=== PATIENT | male | born 1995 | race Caucasian/White ===

== ENCOUNTER 2020-05-09 10:37 | Inpatient (IN) | payer MEDICAID, SELFPAY ==
[~2020-05-09] VITALS: Ht 165.1 cm; Wt 61.2 kg
[2020-05-09 11:01] VITALS: BP 147/118
[2020-05-09] MEDS ORDERED: NACL 0.9% 1,000 ML IV ONE ×2 (11:30→13:35)
--- NOTE | 2020-05-09 11:50 | NUR ---
25 Y/O MALE C/O ABDOMINAL PAIN & CAN'T SLEEP & TOOK THERAFLU 18 BAGS X 3 DAYS. C/O HEAR VOICES LAST NIGHT. PT STATES HE IS CURRENTLY HEARING VOICES AT THIS TIME. STATES THIS IS NOT NORMAL FOR HIM. AAOX4. GCS 15. PT HAS TREMORS AT THIS TIME. RESP EVEN AND UNLABORED. DENIES ANY N/V/D, GI UPSET. COVID TESTED 3 DAYS AGO: NEGATIVE. PMH: ASTHMA
[2020-05-09 12:28] LABS: EOSINOPHILS % (AUTO) 0.2 % (0.0-4.0); HEMATOCRIT 40.9 % (36-52); HEMOGLOBIN 13.9 g/dL (12.0-18.0); LYMPHOCYTES # (AUTO) 1.6 K/uL (2.0-11.5); LYMPHOCYTES % (AUTO) 10.6 % (20.5-51.1); MEAN CORPUSCULAR HEMOGLOBIN 33 pg (27-31); MEAN CORPUSCULAR HGB CONC 34 g/dL (33-37); MONOCYTES # (AUTO) 1.2 K/uL (0.8-1.0); MONOCYTES % (AUTO) 7.8 % (1.7-9.3); NEUTROPHILS # (AUTO) 12.3 K/uL (1.8-7.7); NEUTROPHILS % (AUTO) 81.4 % (42.2-75.2); PLATELET COUNT (AUTO) 209 K/uL (140-450); RED BLOOD CELL COUNT(AUTO) 4.25 MIL/uL (4.20-6.10); RED CELL DISTRIBUTION WIDTH 13.2 % (11.6-13.7); WHITE BLOOD COUNT (AUTO) 15.1 K/uL (4.8-10.8)
[2020-05-09 12:46] LABS: ALBUMIN 3.5 g/dL (3.4-5.0); ANION GAP 13.7 (8-16); ASPARTATE AMINOTRANSFERASE 331 U/L (15-37); CHLORIDE 102 mmol/L (98-107); CREATININE 0.8 mg/dL (0.6-1.3); GFR ARICAN-AMERICAN 149 mL/min (>90); GLUCOSE 110 mg/dL (74-106); POTASSIUM 3.7 mmol/L (3.5-5.1); SODIUM SERUM 138 mmol/L (136-145); TOTAL BILIRUBIN 1.9 mg/dL (0.0-1.0); UREA NITROGEN, BLOOD 15 mg/dL (7-18)
[2020-05-09 13:03] LABS: ACETAMINOPHEN < 0.5 ug/ml (10-30); SALICYLATE < 2.8 mg/dL (2.8-20.0)
[2020-05-09 14:03] LABS: BARBITURATE, URINE NEGATIVE ng/ml (NEG <=200); BENZODIAZEPINE, URINE NEGATIVE ng/mL (NEG <=200); CANNABINOID, URINE NEGATIVE ng/mL (NEG <=50); COCAINE, URINE NEGATIVE ng/mL (NEG <=300); OPIATE, URINE NEGATIVE ng/mL (NEG <=2000); PHENCYCLIDINE SCREEN,URINE NEGATIVE ng/mL (NEG <=25)
--- NOTE | 2020-05-09 15:51 | NUR ---
POISON CONTROL CONTACTED AT THIS TIME RECOMMENDATIONS: MUCOMYST: 3 BAGS, 1ST BAG 150MG/KG OVER ONE HOUR SECOND BA MG/KG OVER 4 HOURS THIRD BAMG/KG OVER 16 HOURS RERUN AST/ALT GET INR, EKG
[2020-05-09] MEDS ORDERED: ACETYLCYSTEINE IV ONE ×2 (16:00)
[2020-05-09] MEDS ORDERED: DEXTROSE 5% IV ONE ×2 (16:00)
--- NOTE | 2020-05-09 16:02 | NUR ---
PT MOVED TO BED 1.
--- NOTE | 2020-05-09 16:05 | NUR ---
Received patient from [facility]/triage area, A, A, O x 4, cooperative. OD on Theraflu 18 packets over 3 days, poison control recommendations are in the chart. 25 Y/O MALE C/O ABDOMINAL PAIN & inability to SLEEP & TOOK THERAFLU 18 packets X 3 DAYS. C/O HEAR VOICES LAST NIGHT. PT STATES HE IS CURRENTLY HEARING VOICES (AH) and seeing a little girl (VH) AT THIS TIME. STATES THIS IS NOT NORMAL FOR HIM. Denies any suicidal ideations. GCS 15. PT HAS TREMORS AT THIS TIME. RESP EVEN AND UNLABORED. DENIES ANY N/V/D, GI UPSET. Connected to telemetry monitor, sinus rhythm COVID TESTED 3 DAYS AGO: NEGATIVE PMH: ASTHMA Will continue to monitor
--- NOTE | 2020-05-09 16:35 | NUR ---
Pharmacy called by THOMAS Aguilar to get mucomyst drip IVPB
--- NOTE | 2020-05-09 17:01 | NUR ---
Called MD and left message that patient needs a diet order
--- NOTE | 2020-05-09 17:45 | NUR ---
Pharmacy brought mucomyst drip. Started at 250cc/hr to run over 1 hour for bag #1
[2020-05-09] MEDS ORDERED: ONDANSETRON 4 MG/2 ML VIAL IM/IVP PRN (18:20)
[2020-05-09] MEDS ORDERED: guaiFENesin DM 200/20 MG-10 ML 10 ML UDC PO PRN (18:20)
[2020-05-09] MEDS ORDERED: POTASSIUM CHLORIDE 40 MEQ, LIDOCAINE MPF 1% 25 MG in NACL 0.9% 250 ML IV PRN (18:20)
[2020-05-09] MEDS ORDERED: ZOLPIDEM 5 MG TAB PO PRN (18:20)
[2020-05-09] MEDS ORDERED: ACETAMINOPHEN 325 MG TAB PO PRN (18:20)
[2020-05-09] MEDS: NACL 0.9% 1,000 ML IV SCH (18:20)
[2020-05-09] MEDS ORDERED: HYDROcodone/APAP 7.5/325 MG 1 TAB PO PRN (18:20)
[2020-05-09] MEDS ORDERED: DOCUSATE SODIUM 100 MG GELCAP PO PRN (18:20)
--- NOTE | 2020-05-09 18:43 | NUR ---
Portable CXR taken, patient ambulating to washroom to void, gait steady
--- NOTE | 2020-05-09 18:46 | NUR ---
2nd bag of mucomyst hung to run at 129cc/hr per Pharmacy, 500cc over 4 hours
--- NOTE | 2020-05-09 19:13 | NUR ---
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 Questions answered, meds and orders reviewed.
--- NOTE | 2020-05-09 19:15 | NUR ---
Patient swabbed for rapid COVID-19 FRAN, sent tolab
[2020-05-09 19:26] LABS: FREE T4 (FREE THYROXINE) 1.11 ng/dL (0.76-1.46); MAGNESIUM 1.9 mg/dL (1.8-2.4); PHOSPHORUS 2.6 mg/dL (2.5-4.9); THYROID STIMULATING HORMONE 2.59 uIU/mL (0.34-3.74)
--- NOTE | 2020-05-09 19:30 | NUR ---
RECEIVED REPORT FROM THOMAS AUGUST AND ASSUMED CARE
[2020-05-09] MEDS ORDERED: ACETYLCYSTEINE IV SCH (22:00)
[2020-05-09] MEDS ORDERED: DEXTROSE 5% IV SCH (22:00)
--- NOTE | 2020-05-09 22:35 | NUR ---
HUNG FINAL BAG OF MUCOMYST PER ORDERS.
--- NOTE | 2020-05-09 23:06 | NUR ---
POISON CONTROL CALLED TO CHECK ON PT. NO FURTHER INSTRUCTIONS GIVE AT THIS TIME
[2020-05-10 00:51] LABS: APPEARANCE,URINE CLEAR (CLEAR); BILIRUBIN,URINE NEGATIVE (NEGATIVE); BLOOD, URINE NEGATIVE (NEGATIVE); COLOR,URINE ORANGE (YELLOW); LEUKOCYTE ESTERASE ,URINE TRACE (NEGATIVE); NITRITE, URINE NEGATIVE (NEGATIVE); UGLUCOSE NEGATIVE (NEGATIVE)
[2020-05-10 01:05] LABS: BARBITURATE, URINE NEGATIVE ng/ml (NEG <=200); BENZODIAZEPINE, URINE NEGATIVE ng/mL (NEG <=200); CANNABINOID, URINE NEGATIVE ng/mL (NEG <=50); COCAINE, URINE NEGATIVE ng/mL (NEG <=300); OPIATE, URINE NEGATIVE ng/mL (NEG <=2000); PHENCYCLIDINE SCREEN,URINE NEGATIVE ng/mL (NEG <=25)
[2020-05-10 01:11] LABS: RBC,URINE 0-5 /HPF (0-5); WBC,URINE 0-5 /HPF (0-5)
--- NOTE | 2020-05-10 01:55 | NUR ---
PT AMBULATED TO RESTROOM
--- NOTE | 2020-05-10 02:57 | NUR ---
PT AWAKE IN BED. PT STATES THAT HE IS NO LONGER HAVING A/V HALLUCINATIONS
--- NOTE | 2020-05-10 03:48 | NUR ---
PT STATED THAT HE CANNOT SLEEP. GAVE AMBIEN PER MD PRN ORDERS
[2020-05-10] MEDS: NACL 0.9% 1,000 ML IV SCH (04:30)
--- NOTE | 2020-05-10 07:30 | NUR ---
RECEIVED REPORT FROM THOMAS TANG.
[2020-05-10 07:45] LABS: BASOPHILS % (AUTO) 0.2 % (0.0-2.0); EOSINOPHILS # (AUTO) 0.2 K/uL (0-0.4); EOSINOPHILS % (AUTO) 1.7 % (0.0-4.0); HEMATOCRIT 41.6 % (36-52); HEMOGLOBIN 14.2 g/dL (12.0-18.0); LYMPHOCYTES # (AUTO) 1.9 K/uL (2.0-11.5); LYMPHOCYTES % (AUTO) 15.1 % (20.5-51.1); MEAN CORPUSCULAR HEMOGLOBIN 33 pg (27-31); MEAN CORPUSCULAR HGB CONC 34 g/dL (33-37); MEAN CORPUSCULAR VOLUME 96.8 fL (80-94); MONOCYTES # (AUTO) 1.2 K/uL (0.8-1.0); MONOCYTES % (AUTO) 9.3 % (1.7-9.3); NEUTROPHILS # (AUTO) 9.2 K/uL (1.8-7.7); NEUTROPHILS % (AUTO) 73.7 % (42.2-75.2); PLATELET COUNT (AUTO) 208 K/uL (140-450); RED CELL DISTRIBUTION WIDTH 13.5 % (11.6-13.7); WHITE BLOOD COUNT (AUTO) 12.5 K/uL (4.8-10.8)
[2020-05-10] MEDS ORDERED: PANTOPRAZOLE 40 MG TABEC PO ONE (07:48)
[2020-05-10 08:00] VITALS: BP 141/103
--- NOTE | 2020-05-10 08:05 | NUR ---
DR. HOFFMAN MADE AWARE THAT PT WANTS TO AMA
[2020-05-10 08:15] LABS: ALBUMIN 3.4 g/dL (3.4-5.0); ANION GAP 17.1 (8-16); CARBON DIOXIDE 23.1 mmol/L (21-32); CREATININE 0.7 mg/dL (0.6-1.3); POTASSIUM 3.2 mmol/L (3.5-5.1); TOTAL BILIRUBIN 1.7 mg/dL (0.0-1.0)
--- NOTE | 2020-05-10 08:20 | NUR ---
Patient does not wish to proceed with medical care recommended by DR. HOFFMAN. Patient given information related to possible complications, up to and including , which could occur as a result of leaving hospital at this time. Patient verbalizes understanding of risks involved leaving against medical advice. Patient has signed AMA form. PATIENT IS A&O X4. PT VERBALIZES HE HAS A RIDE HOME BY .
[2020-05-10] MEDS ORDERED: PANTOPRAZOLE 40 MG TABEC PO SCH (09:00)
--- NOTE | 2020-05-10 10:02 | NUR ---
PATIENT HAS BEEN SCREENED AND CATEGORIZED LOW NUTRITION RISK. PATIENT WILL BE SEEN WITHIN 7 DAYS OF ADMISSION. 05/16/[address]
[2020-05-11 07:07] LABS: T4 (THYROXINE) 8.1 ug/dL (4.5-12.0)
--- NOTE | 2020-05-11 18:52 | NUR ---
LATE ENTRY -- ACETYLCYSTINE INFUSIONS COMPELTED AT 1845 05/09, 2247 05/09, AND 0800 05/09
== END 2020-05-10 08:20 | disposition left against medical advice (07) | DRG 812 ==
LOC: MED 10:37 → MTU 17:56
PROVIDERS: ADMIT Family Medicine; ATTEND Family Medicine
DX: T39.1X1A Poisoning by 4-Aminophenol derivatives, accidental (unintentional), initial encounter (principal); G92 Toxic encephalopathy; Z20.828 Contact with and (suspected) exposure to other viral communicable diseases; R74.01 Elevation of levels of liver transaminase levels; Y92.89 Other specified places as the place of occurrence of the external cause; D72.829 Elevated white blood cell count, unspecified; E78.2 Mixed hyperlipidemia; J45.909 Unspecified asthma, uncomplicated
CPT/HCPCS: 36415; 71045; 80053; 80305; 81001; 82150; 83036; 83690; 83735; 83880; 84100; 84436; 84439; 84443; 84479; 84484; 85025; 85610; 85730; 87086; 96372; 99285; G0480; G0482; J0132; J7060